=== PATIENT | female | born 1970 | race African-American/Black ===

== ENCOUNTER 2017-08-30 17:20 | Emergency (ER) | payer OTHER ==
[~2017-08-30] VITALS: Ht 162.6 cm; Wt 76.0 kg
[~2017-08-30 17:20] MED LIST: FLAGYL500 MG PO; FLONASE16 G1 BOTH NARES; LOSARTAN POTASS50 MG PO; MOTRIN800 MG PO; TORADOL10 MG PO; ZOFRAN ODT4 MG PO
[2017-08-30] MEDS ORDERED: NAPROXEN500 MG PO (20:38)
[2017-08-30] MEDS ORDERED: FLEXERIL10 MG PO (20:38)
[2017-08-30 20:48] VITALS: BP 157/101
== END 2017-08-30 21:01 | disposition home or self-care (01) ==
LOC: EME 17:20
DX: S39.012A Strain of muscle, fascia and tendon of lower back, initial encounter (principal); V43.52XA Car driver injured in collision with other type car in traffic accident, initial encounter; Y92.410 Unspecified street and highway as the place of occurrence of the external cause
CPT/HCPCS: 99281; 99284

== ENCOUNTER 2017-09-05 14:16 | Emergency (ER) | payer OTHER ==
[~2017-09-05] VITALS: Ht 162.6 cm; Wt 75.9 kg
[~2017-09-05 14:16] MED LIST changes: +FLEXERIL10 MG PO; +NAPROXEN500 MG PO
[2017-09-05 14:27] VITALS: BP 165/100
[2017-09-05] MEDS ORDERED: FLEXERIL10 MG PO (15:01)
[2017-09-05] MEDS ORDERED: NAPROSYN500 MG PO (15:01)
[2017-09-05] MEDS ORDERED: LIDODERM 5% P1 PATCH TD (15:01)
== END 2017-09-05 15:28 | disposition home or self-care (01) ==
LOC: EME 14:16
DX: M54.5 Low back pain (principal); M62.838 Other muscle spasm; V43.52XD Car driver injured in collision with other type car in traffic accident, subsequent encounter
CPT/HCPCS: 99281; 99284